=== PATIENT | male | born 1950 | race Caucasian/White ===

== ENCOUNTER 2020-11-21 17:52 | Outpatient (REF) | payer OTHER, SELFPAY ==
--- NOTE | ~2020-11-21 | MR_ITS ---
MR CERVICAL SPINE WITHOUT CONTRAST CLINICAL INFORMATION: Cervical spine stenosis. COMPARISON: None available. TECHNIQUE: MRI of the cervical spine was obtained using routine sequences without contrast. FINDINGS: Straightening the cervical lordosis. There is a partially imaged rightward convex scoliotic curvature of the thoracic spine. The vertebral body heights are maintained. There is moderate disc volume loss at all cervical levels with exception of C7-T1 where the disc volume is fairly maintained. There are no acute fractures. The craniocervical junction is unremarkable. The cervical arterial flow voids are maintained. There are no significant extraspinal soft tissue findings. No cord signal changes. C2-C3: Disc osteophyte mildly narrows the central canal. Uncovertebral joint hypertrophy and hypertrophic facet arthropathy result in moderate to severe left and moderate right foraminal stenosis. C3-C4: Disc osteophyte and ligamentum flavum thickening result in mild to moderate central canal stenosis. Advanced uncovertebral joint hypertrophy and hypertrophic facet arthropathy result in severe right and moderate left foraminal stenosis. C4-C5: Disc osteophyte slightly flattens the ventral cord resulting in mild to moderate central canal stenosis. Advanced uncovertebral joint hypertrophy and hypertrophic facet arthropathy result in moderate to severe right and moderate left foraminal stenosis. C5-C6: Disc osteophyte and ligamentum flavum thickening result in mild to moderate central canal stenosis and flattening of the cord. Advanced uncovertebral joint hypertrophy and hypertrophic facet arthropathy result in severe bilateral foraminal stenosis. C6-C7: Disc osteophyte mildly narrows the central canal. Advanced uncovertebral joint hypertrophy and hypertrophic facet arthropathy result in severe bilateral foraminal stenosis. C7-T1: Slight annular disc bulge. No central canal stenosis. Uncovertebral joint spurring and facet arthropathy result in moderate left-sided foraminal stenosis. MR/MR cervical spine wo con IMPRESSION: Advanced multilevel cervical spondylosis with multifactorial degenerative changes resulting in varying degrees of moderate to severe foraminal stenosis bilaterally throughout the cervical spine as described. Spondylitic changes result in mild to moderate central canal stenosis and flattening of the cervical cord at the C3-C4, C4-C5, and C5-C6 levels.
== END 2020-11-21 17:53 | disposition home or self-care (01) ==
LOC: HO.MRI 17:52
PROVIDERS: PCP Internal Medicine; Visit Provider Psychiatry & Neurology Neurology
DX: M48.02 Spinal stenosis, cervical region (principal)
CPT/HCPCS: 72141